=== PATIENT | female | born 1975 | race Caucasian/White ===

== ENCOUNTER → 2017-09-26 | Outpatient (CLI) | payer OTHER ==
--- NOTE | 2017-09-26 10:35 | ECHOF ---
Referral Reason:I34.1 Nonrheumatic mitral valve prolapse MEASUREMENTS -------- HEIGHT: 162.6 cm WEIGHT: 95.3 kg BP: RVIDd: 2.5 cm (< 3.3) IVSd: 1.0 cm (0.6 - 1.1) LVIDd: 4.7 cm (3.9 - 5.3) LVPWd: 0.9 cm (0.6 - 1.1) IVSs: 1.4 cm LVIDs: 3.4 cm LVPWs: 1.3 cm LA Diam: 3.2 cm (2.7 - 3.8) LAESV Index (A-L): 19.34 ml/m Ao Diam: 2.7 cm (2.0 - 3.7) AV Cusp: 2.4 cm (1.5 - 2.6) LA Diam: 3.5 cm (2.7 - 3.8) MV EXCURSION: 11.800 mm (> 18.000) MV EF SLOPE: 72 mm/s (70 - 150) EPSS: 0.3 cm MV E Anil: 0.81 m/s MV DecT: 257 ms MV A Anil: 0.63 m/s MV E/A Ratio: 1.27 RAP: 5.00 mmHg RVSP: 26.20 mmHg FINDINGS -------- Sinus rhythm. This was a technically good study. LV size, wall thickness and systolic function are normal, with an EF greater than 55%. The left tom tricular size is normal. The right ventricle is normal in size. The left atrial size is normal. Normal LA size by volume 22+/-6 ml/m2. The right atrial size is normal. The aortic valve is trileaflet, and appears structurally normal. No aortic stenosis or regurgitation. Mild mitral annular calcification present. Mild mitral regurgitation is present. Mild tricuspid regurgitation present. There is no evidence of pulmonary hypertension. The right v entricular systolic pressure, as measured by Doppler, is 26.20mmHg. There is no pulmonic regurgitation present. The aortic root size is normal. There is no pericardial effusion. CONCLUSIONS -------- 1. LV size, wall thickness and systolic function are normal, with an EF greater than 55%. 2. The left ventricular size is normal. 3. The right ventricle is normal in size. 4. The left atrial size is normal. 5. The right atrial size is normal. 6. The aortic valve is trileaflet, and appears structurally normal. No aortic stenosis or regurgitati on. 7. Mild mitral annular calcification present. 8. Mild mitral regurgitation is present. 9. Mild tricuspid regurgitation present. 10. There is no evidence of pulmonary hypertension. 11. The right ventricular systolic pressure, as measured by Doppler, is 26.20mmHg. 12. There is no pulmonic regurgitation present. 13. The aortic root size is normal. 14. There is no pericardial effusion. MECHANICAL ENGINEERING LECTURER: Palma Quintanilla RDCS
== END ==
LOC: RADECHMAIN 08:26
PROVIDERS: ATTEND Internal Medicine
DX: I08.1 Rheumatic disorders of both mitral and tricuspid valves (principal)
CPT/HCPCS: 93306

== ENCOUNTER → 2023-09-27 | Outpatient (CLI) | payer OTHER ==
--- NOTE | 2023-10-03 11:51 | MM ---
Reason for Exam: Screening (asymptomatic). Last mammogram was performed 3 year(s) and 3 month(s) ago. Patient History: Menarche at age 12. First Full-Term at age 23. Patient has history of breast feeding. Hormonal Contraceptives for 2 months. Risk Values: Tanisha 5 year model risk: 0.8%. NCI Lifetime model risk: 8.3%. Prior Study Comparison: 08/25/2015 Bilateral Screening Mammogram, [facility]. 09/01/2015 Left Diagnostic Mammogram, [facility]. 07/01/2020 Bilateral Screening Mammogram, [facility]. Tissue Density: The breasts are almost entirely fatty. Findings: Analyzed By CAD. Right breast: Asymmetry upper aspect 9.8 cm from the nipple MLO view. Left breast: Asymmetry CC view lateral aspect 11.9 cm from the nipple. Overall Assessment: Incomplete: need additional imaging evaluation, BI-RAD 0 Management: Diagnostic Mammogram of both breasts. [facility] will attempt to contact patient to return for supplemental views and ultrasound if indicated. Patient should continue monthly self-breast exams. A clinical breast exam by your physician is recommended on an annual basis. This exam should not preclude additional follow-up of suspicious palpable abnormalities. Note on Tanisha scores and lifetime risk: 1. A Tanisha score greater than 3% is considered moderate risk. If this is the case, consider specialist referral to assess eligibility for a risk reducing agent. 2. If overall lifetime risk for the development of breast cancer is 20% or higher, the patient may qualify for future screening with alternating mammogram and breast MRI. Electronically signed and approved by: Thai Ramos DO
== END | disposition home or self-care (01) ==
LOC: RADMAMWWP 08:09
PROVIDERS: ATTEND Internal Medicine
DX: Z12.31 Encounter for screening mammogram for malignant neoplasm of breast (principal)
CPT/HCPCS: 77067

== ENCOUNTER → 2023-10-04 | Outpatient (CLI) | payer OTHER ==
--- NOTE | 2023-10-04 08:07 | MM ---
Reason for Exam: Additional evaluation requested from abnormal screening. Last screening mammogram was performed less than 1 month ago. Patient History: Menarche at age 12. First Full-Term at age 23. Patient has history of breast feeding. Hormonal Contraceptives for 2 months. Risk Values: Tanisha 5 year model risk: 0.8%. NCI Lifetime model risk: 8.3%. Prior Study Comparison: 08/25/2015 Bilateral Screening Mammogram, [facility]. 09/01/2015 Left Diagnostic Mammogram, [facility]. 07/01/2020 Bilateral Screening Mammogram, [facility]. 09/27/2023 Bilateral MG screening mammo w CAD, [facility]. Tissue Density: There are scattered areas of fibroglandular density. Findings: Analyzed By CAD. There is no evidence for persistent asymmetric density or mass. Overall Assessment: Negative, BI-RAD 1 Management: Screening Mammogram of both breasts in 1 year. . Results were given to the patient verbally at the time of exam. Patient should continue monthly self-breast exams. A clinical breast exam by your physician is recommended on an annual basis. This exam should not preclude additional follow-up of suspicious palpable abnormalities. Note on Tanisha scores and lifetime risk: 1. A Tanisha score greater than 3% is considered moderate risk. If this is the case, consider specialist referral to assess eligibility for a risk reducing agent. 2. If overall lifetime risk for the development of breast cancer is 20% or higher, the patient may qualify for future screening with alternating mammogram and breast MRI. Electronically signed and approved by: Hilton Ham M.D. Radiologis
== END | disposition home or self-care (01) ==
LOC: RADMAMWWP 07:23
PROVIDERS: ATTEND Internal Medicine
DX: R92.323 Mammographic fibroglandular density, bilateral breasts (principal); R92.8 Other abnormal and inconclusive findings on diagnostic imaging of breast
CPT/HCPCS: 77066; G0279; 77062

== ENCOUNTER → 2024-05-01 | Outpatient (CLI) | payer OTHER ==
--- NOTE | 2024-05-01 08:28 | US ---
EXAMINATION TYPE: US thyroid st tissue head/neck DATE OF EXAM: 05/01/2024 COMPARISON: NONE CLINICAL INDICATION: Female, 49 years old with history of E06.3 THYROIDITIS; thyroiditis TECHNIQUE: Grayscale and color Doppler imaging of the thyroid gland. FINDINGS: GLAND SIZE: Right Lobe: 5.0 x 2.3 x 2.3 cm Overall Parenchyma: heterogeneous Left Lobe: 5.0 x 1.6 x 2.1 cm Overall Parenchyma: heterogeneous Isthmus Thickness: .2 cm NODULES RIGHT: # of nodules measured on right: 1 1. 1.9 X 1.1 x 1.1 cm, upper lateral, solid or almost completely solid, hypoechoic nodule, which is wider than tall, with smooth margins, without echogenic foci.TR 4 Prior size: no previous. LEFT: # of nodules measured on left: 0 ISTHMUS: # of nodules measured in the isthmus: 0 Bilateral neck scanned, no evidence of lymphadenopathy. IMPRESSION: 1. Moderately suspicious nodule right lobe thyroid. Fine-needle aspiration recommended. 2017 ACR TI-RADS LEVEL: TR-RADS 4 - Moderately Suspicious: Follow if > 1 cm, FNA if > 1.5 cm *Highest TI-RADS level nodule reported [email or web address] [facility], , 05/01/2024 8:25 AM
--- NOTE | 2024-05-02 09:15 | NM ---
EXAMINATION TYPE: NM thyroid image w uptake DATE OF EXAM: 05/02/2024 COMPARISON: 05/01/2024 CLINICAL INDICATION: Female, 49 years old with history of E06.3 AUTOIMMUNE THYROIDITIS; TECHNIQUE: Thyroid iodine uptake is calculated and images performed after the oral administration of 305 uCi 1-123 Capsule. FINDINGS: There is a focal hot nodule within the inferior right thyroid lobe. No photopenic defects a re evident. The 4 hour iodine uptake is calculated at 9.9% (normal range 8-14%). The 24-hour iodine uptake is adama culated at 22.1% (normal range 15-35%). IMPRESSION: 1. Normal uptake. 2. The may be a hot nodule within the inferior right lobe thyroid this may correlate with a suspiciou s nodule on thyroid ultrasound. Fine needle aspiration recommended. [facility], , 05/02/2024 9:12 AM
== END | disposition home or self-care (01) ==
LOC: RADUSWWP 07:33
PROVIDERS: ATTEND Internal Medicine
DX: E06.3 Autoimmune thyroiditis (principal); E04.1 Nontoxic single thyroid nodule
CPT/HCPCS: 76536; 78014

== ENCOUNTER → 2024-10-09 | Outpatient (CLI) | payer OTHER ==
--- NOTE | 2024-10-09 08:13 | MM ---
Reason for Exam: Follow-up at short interval from prior study. Last screening mammogram was performed 12 month(s) ago. Patient History: Menarche at age 12. First Full-Term at age 23. Perimenopausal. Patient has history of breast feeding. Hormonal Contraceptives for 2 months. Last menstrual period: 10/09/2024 Risk Values: Tanisha 5 year model risk: 0.8%. NCI Lifetime model risk: 8.2%. Prior Study Comparison: 08/25/2015 Bilateral Screening Mammogram, [facility]. 09/01/2015 Left Diagnostic Mammogram, [facility]. 07/01/2020 Bilateral Screening Mammogram, [facility]. 09/27/2023 Bilateral MG screening mammo w CAD, [facility]. Tissue Density: There are scattered areas of fibroglandular density. Findings: Analyzed By CAD. No new suspicious masses, calcifications or distortions. Overall Assessment: Negative, BI-RAD 1 Management: Screening Mammogram of both breasts in 1 year. Results were given to the patient verbally at the time of exam. Patient should continue monthly self-breast exams. A clinical breast exam by your physician is recommended on an annual basis. This exam should not preclude additional follow-up of suspicious palpable abnormalities. Note on Tanisha scores and lifetime risk: 1. A Tanisha score greater than 3% is considered moderate risk. If this is the case, consider specialist referral to assess eligibility for a risk reducing agent. 2. If overall lifetime risk for the development of breast cancer is 20% or higher, the patient may qualify for future screening with alternating mammogram and breast MRI. [facility], , 10/09/2024 8:10 AM. Electronically signed and approved by: Thai Ramos DO
== END | disposition home or self-care (01) ==
LOC: RADMAMWWP 07:46
PROVIDERS: ATTEND Internal Medicine
DX: R92.8 Other abnormal and inconclusive findings on diagnostic imaging of breast (principal); R92.323 Mammographic fibroglandular density, bilateral breasts; Z92.0 Personal history of contraception
CPT/HCPCS: 77066; G0279; 77062